=== PATIENT | female | born 1980 | race Two or more races ===

== ENCOUNTER 2025-02-12 11:00 | Day surgery (SDC) | payer OTHER ==
[2025-02-05 10:20] VITALS: BP 119/84
[~2025-02-12] VITALS: Ht 170.2 cm; Wt 96.2 kg
[2025-02-12] MEDS ORDERED: METRONIDAZOLE/SODIUM CHLORIDE 500 MG/100 ML PIGGYBACK IV ONE ×2 (13:25→15:45)
[2025-02-12] MEDS ORDERED: CEFTRIAXONE SODIUM 2,000 MG VIAL ONE (13:25)
[2025-02-12] MEDS ORDERED: ENOXAPARIN SODIUM 40 MG/0.4 ML SYRINGE SUBCUTANEO ONE ×2 (14:44→15:45)
[2025-02-12] MEDS ORDERED: CEFTRIAXONE SODIUM 2,000 MG VIAL IV ONE (15:45)
[2025-02-12] MEDS ORDERED: PERCOCET 5-3251 EACH PO (16:36)
== END 2025-02-12 20:15 | disposition home or self-care (01) ==
LOC: CIR.AMB 11:00
PROVIDERS: ATTEND Surgery
DX: K81.1 Chronic cholecystitis (principal); K42.0 Umbilical hernia with obstruction, without gangrene; Z91.013 Allergy to seafood; Z91.041 Radiographic dye allergy status